=== PATIENT | male | born 1975 | race Two or more races ===

== ENCOUNTER 2021-01-26 01:22 | Emergency (ER) | payer SELFPAY ==
[~2021-01-26] VITALS: Ht 170.2 cm; Wt 65.8 kg
--- NOTE | 2021-01-26 01:28 | NUR ---
Patient bib RA 83 with alcohol intoxication , patient is noncompliant and unable to answer questions only tajik speaking. No SOB or labored breathing. A/O x2. Patient in bed lowest position. Dr. Bowden at bedside for MSE.
[2021-01-26 01:54] LABS: CREATININE 0.8 mg/dL (0.6-1.3); POTASSIUM 3.6 mmol/L (3.5-5.1)
--- NOTE | 2021-01-26 01:55 | NUR ---
Patient taken for CT
[2021-01-26 01:58] LABS: BASOPHILS # (AUTO) 0.1 K/uL (0.0-8.0); BASOPHILS % (AUTO) 1.4 % (0.0-2.0); HEMATOCRIT 44.6 % (36.7-47.1); LYMPHOCYTES # (AUTO) 2.5 K/uL (20.0-40.0); LYMPHOCYTES % (AUTO) 51.7 % (20.5-51.5); MEAN CORPUSCULAR HEMOGLOBIN 30.1 uug (23.8-33.4); MEAN CORPUSCULAR HGB CONC 34 g/dL (32.5-36.3); MEAN CORPUSCULAR VOLUME 89.1 fL (73.0-96.2); MONOCYTES # (AUTO) 0.5 K/uL (2.0-10.0); MONOCYTES % (AUTO) 10.1 % (0.0-11.0); NEUTROPHILS # (AUTO) 1.7 K/uL (1.8-8.9); NEUTROPHILS % (AUTO) 35.8 % (38.5-71.5); PLATELET COUNT (AUTO) 163 K/uL (152-348); WHITE BLOOD COUNT (AUTO) 4.8 K/uL (3.6-10.2)
[2021-01-26 02:00] LABS: BILIRUBIN,DIRECT 0.1 mg/dL (0.0-0.2); BILIRUBIN,TOTAL 0.2 mg/dL (0.2-1.0); TOTAL PROTEIN, SERUM 9.3 g/dL (6.4-8.2)
--- NOTE | 2021-01-26 02:03 | NUR ---
Patient came back from CT in stable condition.
--- NOTE | 2021-01-26 02:13 | NUR ---
0.62 CORINNE level reported by lab, Dr. Bowden notified.
--- NOTE | 2021-01-26 02:20 | NUR ---
Note robyn in EDM - 01/26/21 at 0222 by DARSHAN Pt. admitted to [facility] , under care of Dr. Navi Rodgers and Dr. Gonzales Dx: psychosis [id number] [address] List completed Pt stable, cooperative, no SOB or labored breathing, afebrile.
--- NOTE | 2021-01-26 05:38 | NUR ---
Patient discharged to home in stable condition. Written and verbal after care instructions given, instructed to not drive. Patient verbalizes understanding of instructions. Steady gait, no c/o KUMAR pain or discomfort. No SOB or labored breathing. Stressed follow up or return to ER for worsening s/s.
[2021-01-26 05:40] VITALS: BP 158/71
== END 2021-01-26 05:50 | disposition home or self-care (01) ==
LOC: EDBD 01:32 → ER 01:32
DX: F10.129 Alcohol abuse with intoxication, unspecified (principal); Y90.8 Blood alcohol level of 240 mg/100 ml or more; R79.89 Other specified abnormal findings of blood chemistry; S00.01XA Abrasion of scalp, initial encounter; X58.XXXA Exposure to other specified factors, initial encounter; Y92.89 Other specified places as the place of occurrence of the external cause
CPT/HCPCS: 36415; 70450; 85025; A4663; G0480